=== PATIENT | female | born 2000 | race Two or more races ===

== ENCOUNTER 2019-09-21 10:29 | Observation (INO) ==
[2019-09-21] MEDS ORDERED: ONDANSETRON 4 MG/2 ML VIAL ONE ×2 (10:40→14:54)
[2019-09-21] MEDS ORDERED: HYDROmorphone 2 MG/1 ML VIAL ONE (10:41)
[2019-09-21] MEDS ORDERED: ONDANSETRON 4 MG/2 ML VIAL IV STA ×2 (10:42→10:44)
[2019-09-21] MEDS ORDERED: HYDROmorphone 2 MG/1 ML VIAL IV STA ×2 (10:42→10:44)
[2019-09-21] MEDS ORDERED: DIPH/TET/ACEL PERT BOOSTER VACCINE 0.5 ML VIAL IM ONE (10:42)
[2019-09-21] MEDS ORDERED: ceFAZolin 2,000 MG in SODIUM CHLORIDE 0.9% 100 ML IV STA (10:45)
[2019-09-21 10:56] LABS: Basophils % 0.5 % (0.0-0.8); Eosinophils # 0.2 10*3/uL (0.0-0.87); Eosinophils % 2.5 % (0.00-10.9); Hematocrit 38.7 VOL% (35.7-47.0); Hemoglobin 12.2 GM/DL (12.0-16.0); Immature Granulocytes % 0.3 %; Immature Granulocytes Absolute 0.02 #; Lymphocytes # 3.5 10*3/uL (1.4-4.0); Lymphocytes % 44.4 % (21.3-54.2); Mean Corpuscular HGB Conc 31.5 GM/DL (32-36); Mean Corpuscular Volume 91.7 FL (87-102); Mean Platelet Volume 10.8 FL (9.6-12.0); Monocytes % 9.2 % (1.7-12.7); Neutrophils % 43.1 % (38.7-73.9); Platelet Count 301 T/CUMM (130-400); Red Blood Count 4.22 MC/CUMM (3.8-5.5); Red Cell Distribution Width 12.9 % (9.3-17.3); White Blood Count 7.9 T/CUMM (4-12)
[2019-09-21 11:06] LABS: Calcium 8.9 MG/DL (8.5-10.1); Osmolality,Calculated 272.8 MOS/KG (273-304)
[2019-09-21 11:56] LABS: Barbiturates Screen,Urine Negative (Negative); Benzodiazepines Screen,Urine Negative (Negative); Cannabinoid Screen,Urine Negative (Negative); Opiate Screen,Urine Negative (Negative); Phencyclidine Screen,Urine Negative (Negative)
[2019-09-21] MEDS ORDERED: MUPIROCIN 2% OINT 22 GM TUBE TOP ONE (14:11)
[2019-09-21] MEDS ORDERED: TISSUE ADHESIVE 1 EACH APPLICATOR TOP ONE (14:20)
[2019-09-21] MEDS ORDERED: CIPROFLOXACIN/DEXAMETHASONE OTIC SUSP 7.5 ML BOTTLE ONE (14:20)
[2019-09-21] MEDS ORDERED: fentaNYL 100 MCG/2 ML VIAL ONE (14:52)
[2019-09-21] MEDS ORDERED: SEVOFLURANE 1 UNIT/15 MINUTE INH ONE (14:53)
[2019-09-21] MEDS ORDERED: propofoL 200 MG/20 ML VIAL IV ONE (14:53)
[2019-09-21] MEDS ORDERED: MIDAZOLAM 2 MG/2 ML VIAL ONE (14:53)
[2019-09-21] MEDS ORDERED: LIDOCAINE 2% 5 ML VIAL ONE (14:53)
[2019-09-21] MEDS ORDERED: DEXAMETHASONE 4 MG/1 ML VIAL ONE (14:54)
[2019-09-21] MEDS ORDERED: KETOROLAC 30 MG/1 ML VIAL IV PRN (14:54)
[2019-09-21] MEDS ORDERED: ROCURONIUM 100 MG/10 ML VIAL IV ONE (14:54)
[2019-09-21] MEDS ORDERED: SUCCINYLCHOLINE 200 MG/10 ML VIAL ONE (14:54)
[2019-09-21] MEDS ORDERED: ONDANSETRON 4 MG/2 ML VIAL IV PRN ×2 (14:54→15:21)
[2019-09-21] MEDS ORDERED: diphenhydrAMINE 50 MG/1 ML VIAL IV PRN (14:54)
[2019-09-21] MEDS ORDERED: IBUPROFEN 600 MG TABLET PO PRN (14:58)
[2019-09-21] MEDS ORDERED: LACTATED RINGERS 1,000 ML IV SCH (15:00)
[2019-09-21] MEDS ORDERED: HYDROmorphone 2 MG/1 ML VIAL IV PRN (15:21)
[2019-09-21] MEDS: DEXAMETHASONE 4 MG/1 ML VIAL IV SCH ×2 (16:10→21:04)
[2019-09-21] MEDS: cefTRIAXone 1,000 MG in SYRINGE 1 EACH IV SCH (16:12)
[2019-09-21] MEDS: MUPIROCIN 2% OINT 22 GM TUBE TOP SCH (21:06)
[2019-09-22] MEDS: cefTRIAXone 1,000 MG in SYRINGE 1 EACH IV SCH (03:26)
[2019-09-22] MEDS: DEXAMETHASONE 4 MG/1 ML VIAL IV SCH ×2 (03:27→09:22)
[2019-09-22 08:20] VITALS: BP 110/58
[2019-09-22] MEDS: MUPIROCIN 2% OINT 22 GM TUBE TOP SCH (09:29)
== END 2019-09-22 13:19 | disposition home or self-care (01) ==
LOC: EDBD → N.ED 10:29 → N.EDINP 10:29 → N.3E 15:23
PROVIDERS: ADMIT Otolaryngology; ATTEND Otolaryngology